=== PATIENT | female | born 1960 | race Hispanic/Latino ===

== ENCOUNTER 2023-11-18 04:26 | Emergency (ER) | payer BC, OTHER ==
[~2023-11-18] VITALS: Ht 139.7 cm; Wt 66.2 kg
[2023-11-18 05:29] LABS: BASOPHILS # (AUTO) 0.05 K/uL (0.00-0.20); BASOPHILS % (AUTO) 0.4 % (0.0-5.0); EOSINOPHILS # (AUTO) 0.09 K/uL (0.00-0.70); EOSINOPHILS % (AUTO) 0.7 % (0.0-8.0); HEMATOCRIT 33.9 % (36-48); IMMATURE GRANULOCYTE ABSOLUTE 0.06 K/uL (0-1); LYMPHOCYTES # (AUTO) 2.2 K/uL (1.0-4.8); LYMPHOCYTES % (AUTO) 17.4 % (21.0-51.0); MEAN CORPUSCULAR HEMOGLOBIN 30.4 pg (27.0-33.0); MEAN CORPUSCULAR HGB CONC 34.5 g/dL (32.0-36.0); MEAN CORPUSCULAR VOLUME 88.1 fL (79-99); MONOCYTES # (AUTO) 0.7 K/uL (0.1-1.0); NEUTROPHILS # (AUTO) 9.2 K/uL (1.8-7.7); PLATELET COUNT (AUTO) 263 K/uL (130-400); RED BLOOD CELL COUNT(AUTO) 3.85 MIL/uL (4.00-5.50); RED CELL DISTRIBUTION WIDTH 13.7 % (11.0-15.5); WHITE BLOOD COUNT (AUTO) 12.3 K/uL (4.8-10.8)
[2023-11-18 05:48] LABS: POTASSIUM 4.1 mmol/L (3.5-5.1)
[2023-11-18 05:49] LABS: INR <= 0.93 (0.85-1.15); PROTHROMBIN TIME 10.1 SEC (9.6-11.6)
[2023-11-18 05:50] LABS: PARTIAL THROMBOPLASTIN TIME 23.7 SEC (26.3-35.5)
[2023-11-18 05:52] LABS: ALBUMIN 3.6 g/dL (3.5-5.0); BILIRUBIN,TOTAL 0.5 mg/dL (0.2-1.0); TOTAL PROTEIN, SERUM 8.1 g/dL (6.0-8.3)
[2023-11-18] MEDS: FAMOTIDINE 20MG VIAL IV ONE (06:00)
[2023-11-18] MEDS: ONDANSETRON 4MG INJ IVP ONE (06:00)
[2023-11-18] MEDS: MORPHINE 4 MG SYG ONE (06:01)
[2023-11-18] MEDS: MORPHINE 2 MG SYG IVP ONE (06:02)
[2023-11-18 08:15] LABS: APPEARANCE,URINE CLEAR (CLEAR); BILIRUBIN,URINE NEGATIVE (NEGATIVE); COLOR,URINE COLORLESS (YELLOW); GLUCOSE, URINE (UA) >=1000 mg/dL (NEGATIVE); KETONES,URINE 10 mg/dL (NEGATIVE); LEUKOCYTE ESTERASE ,URINE NEGATIVE Leu/uL (NEGATIVE); NITRATE,URINE NEGATIVE (NEGATIVE); PH,URINE 6.5 (5.0-8.0); PROTEIN,URINE 100 mg/dL (NEGATIVE); RBC,URINE 0-1 /HPF (0-1); SQUAMOUS EPITHELIAL CELL,UR RARE /HPF (0-2); UROBILINOGEN,URINE 0.2 mg/dL (0.2-1.0); WBC,URINE 0-1 /HPF (0-1)
[2023-11-18] MEDS: MORPHINE 4 MG SYG IVP ONE (08:42)
[2023-11-18] MEDS: CLONIDINE HCL 0.1 MG TABLET PO ONE (09:39)
[2023-11-18] MEDS ORDERED: MAG-37 PO (09:45)
[2023-11-18] MEDS ORDERED: OMEP40CA21 PO (09:45)
[2023-11-18] MEDS: MAG/ALUM/SIMETH 30 ML UDCUP PO ONE (10:55)
[2023-11-18] MEDS: LIDOCAINE HCL 2% VISCOUS 15 ML UDCUP PO ONE (10:55)
[2023-11-18] MEDS: DICYCLOMINE HCL 10 MG/5 ML ML PO ONE (10:55)
[2023-11-18 11:06] VITALS: BP 154/72; PULSE 74; RESP 18; O2SAT 98
== END 2023-11-18 11:05 | disposition home or self-care (01) ==
LOC: EDH 04:26
DX: K29.70 Gastritis, unspecified, without bleeding (principal); R11.10 Vomiting, unspecified; E86.0 Dehydration; I10 Essential (primary) hypertension; E11.9 Type 2 diabetes mellitus without complications
CPT/HCPCS: 99285; 74176; 96374; 96375; 84484; 80053; 83690; 85025; 85610; 85730; 83605 ×2; 81001 ×2; 36415; 93005; 84145; J3490; J2405; J2270 ×2